=== PATIENT | female | born 1955 | race Caucasian/White ===

== ENCOUNTER 2019-05-01 07:54 | Outpatient (CLI) | payer BC ==
--- NOTE | 2019-05-01 10:51 | ULT ---
ABDOMINAL ULTRASOUND: Date: 05/01/19 COMPARISON: None. HISTORY: Epigastric pain, gastroesophageal reflux disease. TECHNIQUE: Multiplanar Samaniego scale sonographic imaging of the abdomen provided. FINDINGS: Visualized pancreas is grossly unremarkable. The distal body and tail are obscured by bowel gas. The imaged aorta and IVC appear grossly unremarkable. There is a small echogenic lesion within the right lobe of the liver measuring 1.0 x 0.7 cm. This is favored to represent a small hemangioma. It is not optimally characterized on this examination. Mobile nonshadowing subcentimeter echogenic foci are noted within the gallbladder suggesting gallston es. There is no gallbladder wall thickening or pericholecystic fluid. [employer] reports a negative Blair's sign. Common bile duct measures 2-3 mm in transverse dimension, within normal limits. Right kidney measures 9.5 x 6.1 x 4.9 cm. Left kidney measures 9.9 x 5.0 x 5.7 cm. There is a central cyst within the right kidney measuring 3.3 x 3.8 x 3.1 cm. No solid renal mass or hydronephrosis not ed on either side. Spleen measures up to 8.5 cm, within normal limits. IMPRESSION: 1. Cholelithiasis with no evidence for cholecystitis or biliary dilatation. 2. Echogenic lesion within the right lobe of the liver. Hemangioma is favored. Recommend follow-up u ltrasound in 6-12 months to document stability. POS: OFF
== END 2019-05-01 07:55 | disposition home or self-care (01) ==
LOC: SCSULT 07:54
PROVIDERS: ATTEND Internal Medicine Gastroenterology
DX: K21.9 Gastro-esophageal reflux disease without esophagitis (principal); R10.13 Epigastric pain; K80.20 Calculus of gallbladder without cholecystitis without obstruction; R93.2 Abnormal findings on diagnostic imaging of liver and biliary tract; Z86.010 Personal history of colon polyps
CPT/HCPCS: 76700